=== PATIENT | male | born 1995 | race Hispanic/Latino ===

== ENCOUNTER 2024-03-01 01:22 | Emergency (ER) | payer SELFPAY ==
[~2024-03-01] VITALS: Ht 172.7 cm; Wt 83.9 kg
[2024-03-01] MEDS: HYDROcodone/APAP 5/325 1 TAB TABLET PO ONE (02:12)
[2024-03-01] MEDS: DIPH,PERTUSS(ACELL),TET VAC/PF 0.5 ML VIAL IM ONE (02:13)
[2024-03-01 05:03] VITALS: BP 115/75; PULSE 75; RESP 18; O2SAT 99
[2024-03-01] MEDS ORDERED: CEPH500T PO (05:09)
[2024-03-01] MEDS: KETOROLAC 15MG/ML VIAL (15MG/ML) IM ONE (05:17)
== END 2024-03-01 05:26 | disposition home or self-care (01) ==
LOC: EDH 01:22
DX: S91.341A Puncture wound with foreign body, right foot, initial encounter (principal); X58.XXXA Exposure to other specified factors, initial encounter; Y93.89 Activity, other specified; Y92.89 Other specified places as the place of occurrence of the external cause; Y99.8 Other external cause status
CPT/HCPCS: 99285; 90715; 73630; 76882; 96372; 90471; J1885